=== PATIENT | female | born 1970 | race Caucasian/White ===

== ENCOUNTER 2018-01-15 16:12 | Outpatient (CLI) | payer MEDICAID | END 2018-01-15 16:13 | disposition critical access hospital (66) | LOC: EMS 16:12 | PROVIDERS: ATTEND Surgery | DX: R52 Pain, unspecified (principal); R25.2 Cramp and spasm; R11.10 Vomiting, unspecified; R19.7 Diarrhea, unspecified | CPT/HCPCS: A0425; A0429 ==

== ENCOUNTER 2018-01-15 16:44 | Inpatient (IN) | payer MEDICAID, OTHER ==
[2018-01-15] MEDS ORDERED: SODIUM CHLORIDE 0.9% 1,000 ML IV ONE ×3 (16:51→19:15)
[2018-01-15] MEDS ORDERED: ONDANSETRON 4 MG/2 ML VIAL IVP STA ×2 (16:53→18:09)
[2018-01-15] MEDS ORDERED: LORazepam 2 MG/ML VIAL IVP STA ×4 (16:53→19:40)
[2018-01-15] MEDS ORDERED: cloNIDine 0.1 MG TABLET PO STA (16:54)
[2018-01-15] MEDS ORDERED: MIDAZOLAM 2 MG/2 ML VIAL IM STA (16:55)
--- NOTE | 2018-01-15 16:55 | ED Physician Documentation ---
PD HPI NVD - Stated complaint Stated Complaint: HEROIN WITHDRAWAL - History obtained from History obtained from: Patient, EMS - History of Present Illness Timing - duration: Days (1-2 -last heroin use was yesterday AM, with significant withdrawal symptoms starting today. Having shaking, fidgety, nausea , cramps, vomiting, diarrhea.) Timing - details: Abrupt onset (today and steadily worsening.), Still present Associated symptoms: Abdominal pain. No: Fever, Near syncope / syncope Contributing factors: Other (narcotic withdrawal with last use yesterday morning , and typically injects 6 times daily.). No: Sick contact, Bad food, Travel Improved by: No: Eating, Vomiting Worsened by: No: Eating Similar symptoms before: Diagnosis (has had withdrawal in the past but not this severe; has been using more heroin lately that she has previously.) Recently seen: Not recently seen (she had arranged to go to a detox facility in [place] (?) and was to get a ride there from her roommate, but the ride did not materialize and the patient got more withdrawal today. To her credit, she did not use heroin for the symptoms.) Review of Systems Constitutional: reports: Chills, Fatigue. denies: Fever Nose: reports: Rhinorrhea / runny nose. denies: Congestion Throat: denies: Sore throat Cardiac: denies: Chest pain / pressure Respiratory: denies: Dyspnea, Cough GI: reports: Abdominal Pain (cramping), Nausea, Vomiting, Diarrhea (today) Skin: denies: Abrasion (s), Laceration (s) Neurologic: reports: Generalized weakness. denies: Focal weakness, Numbness, Altered mental status, Headache, Head injury PD PAST MEDICAL HISTORY - Past Medical History Cardiovascular: None Respiratory: None Neuro: None Endocrine/Autoimmune: None GI: None HURRICANE TRACKER: None : Kidney stones HEENT: None Psych: None Musculoskeletal: Chronic back pain Derm: None - Past Surgical History Past Surgical History: Yes /HURRICANE TRACKER: Hysterectomy - Present Medications Home Medications: Ambulatory Orders Medication Instructions Recorded Confirmed HYDROcod/ACETAM 5/325 [Vicodin 1 - 2 ea PO Q6H PRN #15 tablet 01/21/15 5/325] - Allergies Allergies/Adverse Reactions: Allergies Allergy/AdvReac Type Severity Reaction Status Date / Time No Known Drug Allergies Allergy Verified 04/16/15 11:17 - Social History Does the pt smoke?: Yes Smoking Status: Current every day smoker Does the pt drink ETOH?: Yes Does the pt have substance abuse?: Yes Substance Use and Type: Meth (last use about 2-3 weeks ago), Heroin (6 times daily or more. ) - Family History Family history: reports: Non contributory - Immunizations Immunizations are current?: Yes - POLST Patient has POLST: No PD ED PE NORMAL - Vitals Vital signs reviewed: Yes - General General: Well developed/nourished, Other (severe distress with nausea and repetitive vomiting, agitation, some confusion, abd cramping. ) - HEENT HEENT: Atraumatic, Pharynx benign. No: Moist mucous membranes - Neck Neck: Supple, no meningeal sign, No adenopathy - Cardiac Cardiac: RRR, No murmur - Respiratory Respiratory: No respiratory distress, Clear bilaterally - Abdomen Abdomen: Soft, Non distended, No organomegaly, Other (tender diffusely in abdomen, particularly epigastric. ). No: Normal bowel sounds (hyperactive) - Female Female : Deferred - Rectal Rectal: Deferred - Back Back: No CVA TTP - Derm Derm: Normal color. No: Warm and dry (sweaty) - Extremities Extremities: Normal ROM s pain, No edema, No calf tenderness / cord - Neuro Neuro: No motor deficit. No: Alert and oriented X 3 (conversant but not clear on date/time, very distracted by symptoms. Fidgety and agitated. ) Results - Vitals Vitals: Vital Signs - 24 hr 01/15/18 01/15/18 16:45 17:25 Temperature 37.7 C H 36.8 C Heart Rate 82 74 Respiratory 16 18 Rate Blood Pressure 149/107 H 102/67 O2 Saturation 100 100 Oxygen O2 Source Room air - Labs Labs: Laboratory Tests 01/15/18 01/15/18 17:20 17:20 WBC 12.5 H RBC 4.94 Hgb 13.5 Hct 40.5 MCV 82.0 MCH 27.4 MCHC 33.4 RDW 13.5 Plt Count 327 MPV 7.5 L Neut # 10.0 H Lymph # 1.7 [place] # 0.7 Eos # 0.0 Baso # 0.1 Absolute Nucleated RBC 0.01 Nucleated RBC % 0.0 Sodium 134 L Potassium 3.2 L Chloride 99 L Carbon Dioxide 23 Anion Gap 12.0 BUN 15 Creatinine 0.6 Estimated GFR (MDRD) 108 Glucose 112 H Calcium 9.6 Magnesium 1.7 Total Bilirubin 0.9 AST 29 ALT 29 Alkaline Phosphatase 78 Total Protein 8.5 H Albumin 4.4 Globulin 4.1 Albumin/Globulin Ratio 1.1 Lipase 21 L Ethyl Alcohol < 5.0 PD MEDICAL DECISION MAKING - ED course Complexity details: re-evaluated patient (repeated doses of IV antiemetics and benzos to help with the symptoms. She is not vomiting anymore but is still agitated and fidgety. ), considered differential (Significant heroin withdrawal and needed goodly doses of antiemetics and benzos for symptoms. I know CIWA is for alcohol withdrawal but still had nurses score her on the CIWA and had significant number in 30s. I don't think she will be able to do this with oral meds tonight, and she has too significant of symptoms to be able to do detox facility (they require lower doses orally and stable on dosing, and it is not clear the dosing the patient will need right now). I therefore think she needs medical treatment for her significant withdrawal. ), d/w patient Departure - Departure Disposition: 66 [facility] DC/Xfer Clinical Impression: Heroin withdrawal, Nausea vomiting and diarrhea, Dehydration, Hypokalemia Condition: Stable Record reviewed to determine appropriate education?: Yes Discharge Date/Time: 01/15/18 20:00
[2018-01-15 17:33] LABS: BASOPHILS # (AUTO) 0.1 10^3/uL (0.0-0.1); BASOPHILS % (AUTO) 0.5 %; EOSINOPHILS % (AUTO) 0.1 %; HGB - HEMOGLOBIN 13.5 g/dL (12.0-16.0); LYMPHOCYTES # (AUTO) 1.7 10^3/uL (1.5-3.5); LYMPHOCYTES % (AUTO) 13.7 %; MEAN CORPUSCULAR HEMOGLOBIN 27.4 pg (27.0-31.0); MEAN CORPUSCULAR HGB CONC 33.4 g/dL (32.0-36.0); MEAN PLATELET VOLUME 7.5 fL (7.9-10.8); MONOCYTES # (AUTO) 0.7 10^3/uL (0.0-1.0); MONOCYTES % (AUTO) 5.9 %; NEUTROPHILS % (AUTO) 79.8 %; PLT - PLATELET COUNT 327 10^3/uL (130-450); RED BLOOD COUNT 4.94 10^6/uL (4.20-5.40); RED CELL DISTRIBUTION WIDTH 13.5 % (12.0-15.0); WHITE BLOOD COUNT 12.5 x10^3/uL (4.8-10.8)
[2018-01-15 17:40] LABS: ALBUMIN 4.4 g/dL (3.2-5.5); ALBUMIN/GLOBULIN RATIO 1.1 (1.0-2.2); ALKALINE PHOSPHATASE 78 IU/L (42-121); ALT ALANINE AMINOTRANSFERASE 29 IU/L (10-60); AST ASPARTATE AMINOTRANSFERASE 29 IU/L (10-42); BILIRUBIN,TOTAL 0.9 mg/dL (0.2-1.0); BUN - BLOOD UREA NITROGEN 15 mg/dL (6-20); CALCIUM 9.6 mg/dL (8.5-10.3); CARBON DIOXIDE - CO2 23 mmol/L (21-32); CHLORIDE 99 mmol/L (101-111); CREATININE 0.6 mg/dL (0.4-1.0); GFR - MDRD 108 (>89); GLUCOSE 112 mg/dL (70-100); LIPASE 21 U/L (22-51); MAGNESIUM 1.7 mg/dL (1.7-2.8); SODIUM 134 mmol/L (135-145); TOTAL PROTEIN 8.5 g/dL (6.7-8.2)
[2018-01-15] MEDS ORDERED: POTASSIUM BICARB 25 MEQ TABLET PO STA (18:07)
[2018-01-15] MEDS ORDERED: POTASSIUM CHLOR 10 MEQ/100 ML 10 MEQ/100 ML BAG IV ONE (19:15)
[2018-01-15] MEDS ORDERED: PROMETHAZINE 25 MG/1 ML VIAL IM PRN (19:24)
[2018-01-15] MEDS ORDERED: SODIUM CHLORIDE FLUSH 0.9% 10 ML SYRINGE IVP PRN (19:24)
[2018-01-15] MEDS ORDERED: ONDANSETRON 4 MG/2 ML VIAL IVP PRN (19:24)
[2018-01-15] MEDS ORDERED: TEMAZEPAM 15 MG CAPSULE PO PRN (19:24)
[2018-01-15] MEDS ORDERED: HYOSCYAMINE SL 0.125 MG TABLET SL PRN (19:48)
[2018-01-15] MEDS ORDERED: D5NS W/20 MEQ KCL 1,000 ML IV SCH (20:00)
[2018-01-15] MEDS ORDERED: cloNIDine 0.2 MG PATCH TOP SCH (20:00)
[2018-01-15] MEDS: diazePAM INJ 5 MG/ML SYRINGE IVP PRN (21:30)
[2018-01-15] MEDS: PROPRANOLOL 10 MG TABLET PO SCH ×2 (22:17→22:51)
[2018-01-15] MEDS: FAMOTIDINE 20 MG/50 ML 50 ML IV SCH (22:25)
[2018-01-15] MEDS: ACETAMINOPHEN 1,000 MG/100 ML 100 ML IV SCH (23:54)
[2018-01-16] MEDS: SODIUM CHLORIDE FLUSH 0.9% 10 ML SYRINGE IVP SCH ×3 (00:03→08:57)
--- NOTE | 2018-01-16 00:38 | HISTORY & PHYSICAL EXAMINATION ---
DATE OF SERVICE: 01/15/2018 Physician: Holly Perry MD CHIEF COMPLAINT: Heroin withdrawal. SOURCE OF HISTORY: Patient had altered mental status on admission and could not provide history. I received report from the ER physician, Dr. Rivera, and I reviewed the available medical record. HISTORY OF PRESENT ILLNESS: The patient is a 47-year-old white female with past medical history of heroin addiction, who was brought into [facility] ER by ambulance after her roommate called 911. The patient on admission was lethargic and confused and could not meaningfully interact. She did admit to being a heroin addict and trying to go for rehab, but she could not make it there. She complained of aches and pains, had muscle jerks, and appeared in moderate distress. Her friend/roommate basically confirmed this straightforward history, which is that the patient is a heroin addict, using heroin about 5 times daily and stopped using about 24 hours prior to presentation. She was seen in [place] earlier and was supposed to get admitted to a detox program on 01/15/2018. However, she became acutely ill, could not get to the detox facility, and her roommate called 911 instead of taking her to the detox facility. There was complaint of nausea, vomiting, shakes and delirium. Vital signs were reasonably stable with blood pressure 150/100, heart rate between 70 and 80, oxygen saturation 100%on room air, respiratory rate 22, temperature was slightly elevated at 37.7 Celsius. Laboratory showed a potassium of 3.2, sodium 134. White blood cell count 12.5. Alcohol level was undetectable. Lactic acid was low. PAST MEDICAL HISTORY: Patient could not provide, not much medical record available. It seems she does not suffer from significant chronic illness. OUTPATIENT MEDICATION: Unknown, patient could not provide. REVIEW OF SYMPTOMS: Please see pertinent positives listed above at history of present illness. I attempted a 12-point review, the patient did not offer other complaints. FAMILY HISTORY: Patient could not provide, she had altered mental status. SOCIAL HISTORY: Patient is a heroin addict. PHYSICAL EXAMINATION VITAL SIGNS: See listed above in the history of present illness. GENERAL: Patient is a well-developed female who was anxious, diaphoretic, confused, restless, appeared in moderate distress. SKIN: Flushed, diaphoretic. HEENT: Oral mucosa appeared dry. LYMPHATIC: No lymphedema. MUSCULOSKELETAL: Track box on the left arm. At the left forearm, there was a round, inflamed collection around a track bisi site, appeared as a subcutaneous abscess. There were some surrounding inflammatory signs. Also, there appeared to be phlebitis. CARDIOVASCULAR: S1, S2. Regular. No obvious murmur. RESPIRATORY: Clear to auscultation. No wheezes or crackles. ABDOMEN: Benign. Bowel tones are hypoactive. NEUROLOGIC: With global encephalopathy, no focal lateralizing sign. PSYCHIATRIC: Anxious, restless. ASSESSMENT AND PLAN 1. The patient is a 47-year-old female who is getting admitted, acutely ill with most likely diagnosis of heroin withdrawal. She will be treated accordingly. We will provide supportive care with IV hydration, she received potassium replacement in the ER already. We will treat her with Propranolol and clonidine to counteract increased adrenergic tone. In addition added Valium and for her aches and pains, we will use IV Tylenol scheduled. 2. Additional issue on admission is left forearm collection for which we will order ultrasound. In addition, I ordered blood cultures and MRSA screen. It appears as phlebitis or subcutaneous abscess. Therefore, we will start Unasyn IV. To make sure there is no significant thrombophlebitis and vein thrombosis, we will check with ultrasound. 3. Deep venous thrombosis prophylaxis, gastrointestinal prophylaxis. DIAGNOSES: 4. Encephalopathy in the setting of heroin withdrawal. 5. Delirium. 6. Hypokalemia, hyponatremia. 7. Left forearm phlebitis and a subcutaneous collection/abscess. 8. Heroin withdrawal. Time spent to the care of this patient was 50 minutes. ATTESTATION: I certify that this patient is acutely ill and the reasonable expectation is that she will remain hospitalized for more than 48 hours. It is expected, however, that she gets discharged or transferred to another facility in less than 96 hours. TD: 01/16/2018 00:36 SUSANA
[2018-01-16 01:25] LABS: BILIRUBIN,URINE NEGATIVE (NEGATIVE); GLUCOSE, URINE (UA) NEGATIVE (NEGATIVE); KETONES,URINE (UA) NEGATIVE (NEGATIVE); LEUKOCYTE ESTERASE, URINE NEGATIVE (NEGATIVE); MUDS CUTOFF CONCENTRATIONS CUTOFF CONC BELOW:; NITRITE,URINE NEGATIVE (NEGATIVE); OCCULT BLOOD,URINE MODERATE (NEGATIVE); PROTEIN,URINE 30 mg/dL (NEGATIVE); UROBILINOGEN,URINE 0.2 (NORMAL) E.U./dL (NORMAL)
[2018-01-16] MEDS: AMPICILLIN/SULBACTAM 1.5 GM in SODIUM CHLORIDE 0.9% MINIBAG 100 ML IV SCH ×6 (01:29→23:58)
[2018-01-16 01:30] LABS: CLARITY,URINE CLEAR (CLEAR)
[2018-01-16 01:33] LABS: BACTERIA,URINE Many /HPF (None Seen); RBC,URINE 0-5 /HPF (0-5); SQUAMOUS EPITHELIAL CELL,UR MOD Squamous (<= Few)
[2018-01-16 01:34] LABS: COCAINE SCREEN URINE NEGATIVE (NEGATIVE); METHAMPHETAMINES SCREEN, URINE POSITIVE (NEGATIVE); MUCUS,URINE Few Strands; OPIATE SCREEN, URINE POSITIVE (NEGATIVE)
[2018-01-16 01:35] LABS: AMPHETAMINE SCREEN,URINE POSITIVE (NEGATIVE); BENZODIAZEPINES SCREEN, URINE POSITIVE (NEGATIVE); METHADONE SCREEN, URINE NEGATIVE (NEGATIVE); OXYCODONE SCREEN, URINE NEGATIVE (NEGATIVE); PROPOXYPHENE SCREEN, URINE NEGATIVE (NEGATIVE); TRICYCLIC ANTIDEPRESSANT,URINE NEGATIVE (NEGATIVE)
[2018-01-16] MEDS: diazePAM INJ 5 MG/ML SYRINGE IVP PRN (03:32)
[2018-01-16] MEDS: ACETAMINOPHEN 1,000 MG/100 ML 100 ML IV SCH ×3 (06:04→21:44)
[2018-01-16] MEDS: DICYCLOMINE 10 MG CAPSULE PO PRN ×2 (07:31→23:09)
[2018-01-16] MEDS: PROPRANOLOL 10 MG TABLET PO SCH ×2 (08:41→21:45)
[2018-01-16] MEDS: FAMOTIDINE 20 MG/50 ML 50 ML IV SCH ×2 (08:42→21:44)
[2018-01-16] MEDS: ENOXAPARIN 40 MG/0.4 ML SYRINGE SUBQ SCH (08:44)
[2018-01-16] MEDS: POLYETHYLENE GLYCOL 3350 17 GM PACKET PO SCH (08:45)
[2018-01-16] MEDS ORDERED: MIN OIL/DIMETHICON/COCONUT OIL 92 GM TUBE TOP PRN (08:51)
[2018-01-16] MEDS ORDERED: ZINC OXIDE 20% OINT 28.35 GM TUBE TOP PRN (08:51)
[2018-01-16] MEDS: D5.45NS W/20 MEQ KCL 1,000 ML IV SCH ×2 (08:59→23:08)
[2018-01-16] MEDS: LORazepam 0.5 MG TABLET PO PRN ×3 (09:06→20:05)
[2018-01-16] MEDS ORDERED: SODIUM CHLORIDE FLUSH 0.9% 10 ML SYRINGE ONE (11:16)
--- NOTE | 2018-01-16 12:35 | Ultrasound Report ---
LEFT ARM VENOUS DUPLEX: 01/16/2018 CLINICAL INDICATION: Swelling, pain. TECHNIQUE: Real-time sonographic vascular imaging was performed by the doweler through the left arm utilizing both color-flow and Doppler spectral analysis. Multiple healthcare sales representative static images were saved for review. FINDINGS: There is normal flow and compressibility of the left internal jugular, subclavian, axillary, brachial, and basilic veins. The cephalic vein could not be identified. At the site of the painful palpable abnormality, there is a small hypoechoic collection in the subcutaneous fat, measuring approximately 3 x 1 x 1 cm, with a possible foreign body centrally. IMPRESSION 1. NO EVIDENCE OF DVT. 2. POSSIBLE FOREIGN BODY AND A SMALL COLLECTION AT THE SITE OF THE PALPABLE ABNORMALITY IN THE MID FOREARM. TD: 01/16/2018 09:35
--- NOTE | 2018-01-16 14:32 | PROVIDER PROGRESS NOTE ---
Subjective - Prog Note Date Prog Note Date: 01/16/18 Prog Note Time: 11:00 - Subjective Pt reports feeling: Improved (Patient says her nausea and vomiting is improving and her diarrhea has stopped. She denies any fever, chills, shortness of breath , or chest pain) Current Medications - Current Medications Current Medications: Active Medications Clonidine HCl ([id number]-6) 1 patch TOP Q7D KAVITA Last Admin: 01/15/18 22:50 Dose: 1 patch Dicyclomine HCl (Bentyl) 10 mg PO Q8HR PRN PRN Reason: PAIN Last Admin: 01/16/18 07:31 Dose: 10 mg Enoxaparin Sodium (Lovenox) 40 mg SUBQ DAILY KAVITA Last Admin: 01/16/18 08:44 Dose: 40 mg Hyoscyamine (Levsin) 0.125 mg SL Q6HR PRN PRN Reason: Nausea / Vomiting Famotidine (Pepcid 20 Mg/50 Ml) 50 mls @ 100 mls/hr IV BID [facility] Last Infusion: 01/16/18 09:19 Dose: Infused Ampicillin Sodium/Sulbactam (Sodium 1.5 gm/ Sodium Chloride) 100 mls @ 200 mls/ hr IV Q6HR [facility] Last Infusion: 01/16/18 12:50 Dose: Infused Acetaminophen (Ofirmev) 100 mls @ 400 mls/hr IV Q8HR [facility] Stop: 01/17/18 23:59 Last Admin: 01/16/18 13:35 Dose: 400 mls/hr Potassium Chloride/Dextrose/Sod Cl (D5.45ns W/20 Meq Kcl) 1,000 mls @ 125 mls/ hr IV .Q8H KAVITA Last Admin: 01/16/18 08:59 Dose: 125 mls/hr Lorazepam (Ativan) 0.5 mg PO Q4H PRN PRN Reason: Anxiety Last Admin: 01/16/18 12:50 Dose: 0.5 mg Mineral Oil (Cavilon) 1 applic TOP PRN PRN PRN Reason: Skin Care Last Admin: 01/16/18 09:05 Dose: 1 applic Multi-Ingredient Ointment (Zinc Oxide) 1 applic TOP PRN PRN PRN Reason: Skin Care Last Admin: 01/16/18 09:05 Dose: 1 appful Ondansetron HCl (Zofran Inj) 4 mg IVP Q6HR PRN PRN Reason: Nausea / Vomiting Polyethylene Glycol (Miralax) 17 gm PO DAILY [facility] Last Admin: 01/16/18 08:45 Dose: 17 gm Promethazine HCl (Phenergan Inj) 25 mg IM Q6HR PRN PRN Reason: Nausea / Vomiting Last Admin: 01/16/18 10:12 Dose: 25 mg Propranolol HCl (Inderal) 20 mg PO BID [facility] Last Admin: 01/16/18 08:41 Dose: 20 mg Sodium Chloride (Normal Saline Flush 0.9%) 10 ml IVP PRN PRN PRN Reason: NEEDED PER PROVIDER ORDERS Sodium Chloride (Normal Saline Flush 0.9%) 10 ml IVP 0100,0900,1700 [facility] Last Admin: 01/16/18 08:57 Dose: 10 ml Temazepam (Restoril) 15 mg PO QPM PRN PRN Reason: Insomnia No Known Home Medications [No Known Home Medications] 01/16/18 Objective - Vital Signs/Intake & Output Reviewed Vital Signs: Yes Vital Signs: Vital Signs x48h Temp Pulse Resp BP Pulse Ox 01/16/18 08:00 37.1 C 65 22 128/84 H 100 Intake & Output: Intake & Output 01/13/18 01/14/18 01/15/18 01/16/18 23:59 23:59 23:59 23:59 Intake Total 2150 2550 Output Total 1200 Balance 2150 1350 - Objective General Appearance: positive: Alert, Mild distress Eyes Bilateral: positive: Normal inspection, PERRL, EOMI, No lid inflammation, Conjunctivae nml, No scleral icterus ENT: positive: ENT inspection nml, Pharynx nml, No signs of dehydration Neck: positive: Nml inspection, Thyroid nml, No JVD, Trachea midline. negative : Thyromegaly Respiratory: positive: Chest non-tender, No respiratory distress, Breath sounds nml. negative: Wheezes, Rales, Rhonchi Cardiovascular: positive: Regular rate & rhythm, No murmur, No gallop Abdomen: positive: Non-tender, No organomegaly, Nml bowel sounds, No distention. negative: Guarding, Rebound Back: positive: Nml inspection. negative: CVA tenderness (R), CVA tenderness (L ) Skin: positive: Color nml, No rash, Warm, Dry. negative: Cyanosis Extremities: positive: Non-tender, Full ROM, Nml appearance, Other (Left upper extremity is warm, with a possible abscess to the left forearm.) Neurologic/Psychiatric: positive: Oriented x3, CN's nml (2-12), Motor nml, Sensation nml, Depressed mood/affect - Lab Results Fish Bones: 01/15/18 17:20 01/15/18 17:20 Other Labs: Lab Results x24hrs 01/16/18 01/15/18 Range/Units 01:25 23:15 Lactic Acid < 0.3 L (0.5-2.2) mmol/L Urine Color YELLOW Urine Clarity CLEAR (CLEAR) Urine pH 6.0 (5.0-7.5) PH Ur Specific [place] >=1.030 H (1.002-1.030) Urine Protein 30 H (NEGATIVE) mg/dL Urine Glucose (UA) NEGATIVE (NEGATIVE) mg/dL Urine Ketones NEGATIVE (NEGATIVE) mg/dL Urine Occult Blood MODERATE H (NEGATIVE) Urine Nitrite NEGATIVE (NEGATIVE) Urine Bilirubin NEGATIVE (NEGATIVE) Urine Urobilinogen 0.2 (NORMAL) (NORMAL) E.U./dL Ur Leukocyte Esterase NEGATIVE (NEGATIVE) Urine RBC 0-5 (0-5) /HPF Urine WBC 0-3 (0-5) /HPF Ur Squamous Epith Cells MOD Squamous H (<= Few) Urine Bacteria Many H (None Seen) /HPF Urine Mucus Few Strands Ur Microscopic Review INDICATED Urine Culture Comments NOT INDICATED Urine Opiates Screen POSITIVE H (NEGATIVE) Ur Oxycodone Screen NEGATIVE (NEGATIVE) Urine Methadone Screen NEGATIVE (NEGATIVE) Ur Propoxyphene Screen NEGATIVE (NEGATIVE) Ur Barbiturates Screen NEGATIVE (NEGATIVE) Ur Tricyclics Screen NEGATIVE (NEGATIVE) Ur Phencyclidine Scrn NEGATIVE (NEGATIVE) Ur Amphetamine Screen POSITIVE H (NEGATIVE) U Methamphetamines Scrn POSITIVE H (NEGATIVE) U Benzodiazepines Scrn POSITIVE H (NEGATIVE) Urine Cocaine Screen NEGATIVE (NEGATIVE) U Cannabinoids Screen NEGATIVE (NEGATIVE) - Diagnostic Imaging Diagnostic Imaging Results: positive: Final report reviewed Diagnostic Imaging Comments: EXAM: [id number] US/VENL ([id number]) LEFT ARM VENOUS DUPLEX: 01/16/2018 CLINICAL INDICATION: Swelling, pain. TECHNIQUE: Real-time sonographic vascular imaging was performed by the drop crew laborer through the left arm utilizing both color-flow and Doppler spectral analysis. Multiple u.s. representative static images were saved for review. FINDINGS: There is normal flow and compressibility of the left internal jugular , subclavian, axillary, brachial, and basilic veins. The cephalic vein could not be identified. At the site of the painful palpable abnormality, there is a small hypoechoic collection in the subcutaneous fat, measuring approximately 3 x 1 x 1 cm, with a possible foreign body centrally. IMPRESSION 1. NO EVIDENCE OF DVT. 2. POSSIBLE FOREIGN BODY AND A SMALL COLLECTION AT THE SITE OF THE PALPABLE ABNORMALITY IN THE MID FOREARM. Assessment/Plan - Problem List (1) Heroin withdrawal Impression: The patient is doing fairly well. Her symptoms are fairly well-managed. She has been sleeping most of the time but has been eating and able to keep most of her food down without any difficulty. She appears to be comfortable. No fevers chills or shortness of breath.The plan is to transfer the patient to treatment facility tomorrow. (2) Abscess of forearm, left Impression: The patient is receiving UnasynEvery 6 hours for the abscess in her left forearm. Continue present care.
[2018-01-16] MEDS ORDERED: LORazepam 0.5 MG TABLET PO SCH (16:00)
[2018-01-16] MEDS: NICOTINE 14 MG PATCH TOP SCH (17:36)
[2018-01-17] MEDS: LORazepam 0.5 MG TABLET PO PRN ×2 (00:08→07:57)
[2018-01-17] MEDS: SODIUM CHLORIDE FLUSH 0.9% 10 ML SYRINGE IVP SCH ×2 (00:18→08:17)
[2018-01-17] MEDS ORDERED: diazePAM 5 MG TABLET PO PRN (03:44)
[2018-01-17] MEDS: ACETAMINOPHEN 1,000 MG/100 ML 100 ML IV SCH (05:51)
[2018-01-17 05:56] LABS: CALCIUM 8.8 mg/dL (8.5-10.3); CREATININE 0.5 mg/dL (0.4-1.0)
[2018-01-17] MEDS: AMPICILLIN/SULBACTAM 1.5 GM in SODIUM CHLORIDE 0.9% MINIBAG 100 ML IV SCH (06:15)
[2018-01-17] MEDS ORDERED: POTASSIUM CHLORIDE 20 MEQ TABLET PO SCH (06:53)
[2018-01-17 07:54] VITALS: BP 138/87
[2018-01-17] MEDS: DICYCLOMINE 10 MG CAPSULE PO PRN (07:57)
[2018-01-17] MEDS: PROPRANOLOL 10 MG TABLET PO SCH (08:16)
[2018-01-17] MEDS: ENOXAPARIN 40 MG/0.4 ML SYRINGE SUBQ SCH (08:16)
[2018-01-17] MEDS: NICOTINE 14 MG PATCH TOP SCH (08:16)
[2018-01-17] MEDS: POLYETHYLENE GLYCOL 3350 17 GM PACKET PO SCH (08:17)
[2018-01-17] MEDS: FAMOTIDINE 20 MG/50 ML 50 ML IV SCH (08:25)
--- NOTE | 2018-01-17 08:46 | XRAY Report ---
TWO VIEW LEFT FOREARM: 01/17/2018 CLINICAL INDICATION: Possible foreign body on ultrasound. FINDINGS: Frontal and lateral views of the left forearm demonstrate soft tissue swelling. No radiopaque foreign body is identified in the soft tissues. No fracture is seen. IMPRESSION: SOFT TISSUE SWELLING. NO RADIOPAQUE FOREIGN BODY IS IDENTIFIED IN THE SOFT TISSUES. TD: 01/17/2018 08:45
--- NOTE | 2018-01-17 10:36 | Discharge Plan ---
Discharge Plan Disposition: 01 Home, Self Care Condition: Stable Diet: Regular Activity Restrictions: Activity as Tolerated Shower Restrictions: No Driving Restrictions: No Weight Bearing: Full Weight Additional Instructions or Follow Up instructions: Get help for your heroin/opiate addiction. Get a primary care physician. No Smoking: If you smoke, Please STOP! Call for help.
[2018-01-17] MEDS: D5.45NS W/20 MEQ KCL 1,000 ML IV SCH ×2 (10:41→10:43)
--- NOTE | 2018-01-17 11:45 | DISCHARGE SUMMARY ---
Discharge Summary Admit Date: 01/15/18 Discharge Date: 01/17/18 Discharging Provider: Niecy Ambrocio DO Primary Care Provider: Bre Hatfield Condition at Discharge: Stable Discharge Disposition: 01 Home, Self Care - DIAGNOSES Admission Diagnoses: Heroin withdrawal Discharge Diagnoses with Status of Each Condition: Heroin withdrawal- The patient is detoxed from opiates at this time as she has not had any for over 48 hours. She will be discharged to her family and states he has a ride over to a drug rehab today arranged already. - HPI History of Present Illness: From Dr. villalba his history and physical: The patient is a 47-year-old white female with a past medical history of heroin addiction, who is brought into [facility] emergency room by ambulance after her roommate called 911. The patient on admission was lethargic and confused and could not meaningfully interact. She did admit to being a heroin addict and that she was trying to go for rehab, but that she could not make it there. She complained of aches and pains, had muscle jerks, and appeared in moderate distress. Her friend/ roommate basically confirm this straightforward history, which is that the patient is a heroin addict, using her own hair and about 5 times daily and stopped using about 24 hours prior to presentation. She was seen in [place] earlier and was supposedly going to get admitted to a detox program on 01/15/2018 , however she became acutely ill and could not get to the detox facility. - HOSPITAL COURSE Hospital Course: The patient was admitted to medical surgical bed and placed on telemetry. She was given medications for anxiety and agitation and her symptoms of nausea, vomiting, diarrhea or controlled symptomatically. It is now been over 48 hours since her last opiate in the patient appears to be stable enough to be discharged. - ALLERGIES Allergies/Adverse Reactions: Allergies Allergy/AdvReac Type Severity Reaction Status Date / Time No Known Drug Allergies Allergy Verified 01/21/15 11:17 - MEDICATIONS Home Medications: Ambulatory Orders Medication Instructions Recorded Confirmed cloNIDine 0.2 MG PATCH 1 patch TOP Q7D patch 01/17/18 [[id number]] - PHYSICAL EXAM AT DISCHARGE General Appearance: positive: No acute distress, Alert Eyes Bilateral: positive: Normal inspection, PERRL, EOMI, No lid inflammation, Conjunctivae nml, No scleral icterus ENT: positive: ENT inspection nml, Pharynx nml, No signs of dehydration Neck: positive: Nml inspection, Thyroid nml, No JVD, Trachea midline. negative : Thyromegaly Respiratory: positive: Chest non-tender, No respiratory distress, Breath sounds nml. negative: Wheezes, Rales, Rhonchi Cardiovascular: positive: Regular rate & rhythm, No murmur, No gallop Peripheral Pulses: positive: 1+ Abdomen: positive: Non-tender, No organomegaly, Nml bowel sounds, No distention. negative: Guarding, Rebound Back: positive: Nml inspection. negative: CVA tenderness (R), CVA tenderness (L ) Skin: positive: Color nml, No rash, Warm, Dry. negative: Cyanosis Extremities: positive: Non-tender, Full ROM, Nml appearance, No pedal edema Neurologic/Psychiatric: positive: Oriented x3, CN's nml (2-12), Motor nml, Sensation nml, Mood/affect nml - LABS Result Diagrams: 01/15/18 17:20 01/17/18 05:37 - FOLLOW UP Follow Up: Please get home for your heroin addiction. You need to go to drug rehab. Stop using illegal drugs. - TIME SPENT Time Spent in Discharge (Minutes): 30
== END 2018-01-17 12:05 | disposition home or self-care (01) | DRG 896 ==
LOC: EDUNIT# → ED 16:44 → MS2 19:24
PROVIDERS: ADMIT Internal Medicine; ATTEND Hospitalist
DX: F11.23 Opioid dependence with withdrawal (principal); G93.49 Other encephalopathy; L02.414 Cutaneous abscess of left upper limb; E87.1 Hypo-osmolality and hyponatremia; E87.6 Hypokalemia; R11.2 Nausea with vomiting, unspecified; R19.7 Diarrhea, unspecified; I80.8 Phlebitis and thrombophlebitis of other sites; F17.200 Nicotine dependence, unspecified, uncomplicated
CPT/HCPCS: 36415; 80048; 80053; 80306; 80320; 81001; 81003; 83605; 83690; 83735; 85025; 87040; 87086; 87640; 96374; 96375; 96376; 99284; 99285

== ENCOUNTER 2018-07-28 02:22 | Outpatient (CLI) | payer MEDICAID | END 2018-07-28 02:23 | disposition E | LOC: EMS 02:22 | PROVIDERS: ATTEND Surgery ==